=== PATIENT | male | born 1995 | race Caucasian/White ===

== ENCOUNTER 2020-11-07 11:07 | Emergency (ER) | payer MEDICAID ==
[~2020-11-07] VITALS: Ht 177.8 cm; Wt 86.0 kg
[2020-11-07 11:11] VITALS: BP 135/79
== END 2020-11-07 11:58 | disposition home or self-care (01) ==
LOC: ER 11:26
DX: K62.89 Other specified diseases of anus and rectum (principal)
CPT/HCPCS: 99281

== ENCOUNTER 2020-11-23 14:21 | Emergency (ER) | payer MEDICAID ==
[~2020-11-23] VITALS: Ht 172.7 cm; Wt 76.0 kg
[2020-11-23 14:33] VITALS: BP 141/83
== END 2020-11-23 15:00 | disposition left against medical advice (07) ==
LOC: ER 14:21
DX: Z53.21 Procedure and treatment not carried out due to patient leaving prior to being seen by health care provider (principal)